=== PATIENT | female | born 1960 | race Caucasian/White ===

== ENCOUNTER → 2017-05-08 | Emergency (ER) | payer SELFPAY ==
[~2017-05-08] VITALS: Ht 162.6 cm; Wt 65.0 kg
[2017-05-08 10:33] VITALS: Ht 162.6 cm; Wt 65.0 kg
== END | disposition left against medical advice (07) ==
LOC: FTE 10:30
DX: Z53.21 Procedure and treatment not carried out due to patient leaving prior to being seen by health care provider (principal)